=== PATIENT | female | born 1955 | race Caucasian/White ===

== ENCOUNTER 2017-10-14 06:32 | Day surgery (SDC) | payer OTHER, SELFPAY ==
[2017-10-14] VITALS (7 sets, daily range): BP systolic 107–149; BP diastolic 55–97; PULSE 63–82; RESP 16–18; TEMP 36.4–36.6; O2SAT 97–100; BMI 45.5
--- NOTE | 2017-10-14 08:53 | PCM.OPRPT ---
Report of Operation Date of Procedure: 10/14/17 Pre-Operative Diagnosis: Screening for colon cancer Post-Operative Diagnosis: Normal colon Surgery/Procedure Performed:: Colonoscopy Type of Anesthesia:: MAC Anesthesiologist: Adrián Mart Specimen's removed: none Estimated Blood Loss (mL): none Description of Procedure: Procedure: Colonoscopy After reviewing the risks benefits, the patient was deemed in satisfactory condition to undergo procedure. After obtaining informed consent, the scope was passed under direct visualization. Throughout the procedure, the patient's blood pressure pulse and position saturations were monitored continuously anesthesia. The colonoscope was introduced through the anus and advanced to the cecum, identified by the appendiceal orifice, IC valve and transillumination. The colonoscopy was performed without difficulty. The patient tolerated procedure well. Quality of bowel prep was good. Findings: The perianal and digital rectal exam were normal. The colon (entire examined portion) appeared normal. Retroflexed view of the distal rectum and anal verge was normal and showed no anal or rectal abnormalities Impression: 1. The entire colon is normal. 2. The distal rectal and anal verge were normal on retroflexed view. Recommendations: Repeat colonoscopy in 10 years for screening purposes - Complications none
== END 2017-10-14 09:43 | disposition home or self-care (01) ==
LOC: EN 06:32 → AC 06:38
PROVIDERS: Family Provider Family Medicine; PCP Family Medicine; Visit Provider Surgery
PROC: 0DJD8ZZ Inspection of Lower Intestinal Tract, Via Natural or Artificial Opening Endoscopic (ICD-10-PCS; CPT 45378; principal; 2017-10-14 07:55)
DX: Z12.11 Encounter for screening for malignant neoplasm of colon (principal); I10 Essential (primary) hypertension; K21.9 Gastro-esophageal reflux disease without esophagitis; R01.1 Cardiac murmur, unspecified; G47.30 Sleep apnea, unspecified; Z78.0 Asymptomatic menopausal state; Z90.49 Acquired absence of other specified parts of digestive tract; Z79.899 Other long term (current) drug therapy
CPT/HCPCS: G0121; J7120

== ENCOUNTER → 2018-02-08 14:09 | Outpatient (CLI) | payer OTHER, SELFPAY ==
[2018-02-08 15:23] LABS: Absolute Lymphocyte Count 2.16 X10^3/ul (0.83-4.51); Absolute Neutrophil Count 3.4 X10^3/uL (2.0-7.7); Basophil# 0.02 X10^3/uL; Basophil% 0.3 % (0-1); Eosinophil# 0.09 X10^3/uL; Eosinophils% 1.4 % (0-5); Hematocrit 39.8 % (37-47); Hemoglobin 12.5 g/dl (12.0-15.0); Lymphocyte # 2.16 X10^3/ul (4.0); Lymphocyte % 33.5 % (19-41); Mean Corp Hgb Conc 31.4 g/gl (32-36); Mean Corpuscular Hgb 26.5 pg (27.0-32.0); Mean Corpuscular Volume 84.5 fL (81-99); Mean Platelet Vol. 10.5 fl (6.2-12.0); Monocyte# 0.72 X10^3/uL; Monocyte% 11.2 % (0-10); Neutrophil # 3.44 X10^3/uL (2.7-7.7); Neutrophil % 53.4 % (47-70); Platelet Count 254 K/mm3 (150-450); RBC Distribution Width CV 14.1 % (11.6-14.6); RBC Distribution Width SD 43.5 fl (35.1-43.9); Red Blood Count 4.71 M/mm3 (4.2-5.4); White Blood Count 6.4 K/mm3 (4.4-11.0)
[2018-02-08 15:41] LABS: Hemoglobin A1c 6.2 % (4.2-6.3)
[2018-02-08 15:43] LABS: POSITIVE COUNT NO; POSITIVE DIFFERENTIAL NO; POSITIVE MORPHOLOGY NO
[2018-02-08 15:57] LABS: ALB/GLOB Ratio 0.9 RATIO (0.9-2.4); AST(SGOT) 19 U/L (15-37); Alanine Aminotransfer ALT/SGPT 32 U/L (13-56); Albumin, Serum 3.5 g/dL (3.2-5.0); Alkaline Phosphatase 58 U/L (45-117); Anion Gap 11 (5-15); BUN 12 mg/dL (7-18); BUN/Creat Ratio 17.1 RATIO (10-20); Calcium,Total 8.7 mg/dL (8.5-10.1); Chloride 106 mmol/L (98-107); Cholesterol 150 mg/dL (200); EST Glomerular Filtration Rate 90 mL/min (>60); Est Glom Filt Rate - Afr Amer 109 mL/min (>60); Globulin 3.7 g/dL (2.2-4.2); Glucose 90 mg/dL (74-106); High Density Lipoprotein 46 mg/dL; Potassium 3.9 mmol/L (3.5-5.1); Protein, Total 7.2 g/dL (6.4-8.2); Sodium Level 142 mmol/L (136-145); Triglycerides 92 mg/dL; Very Low Density Lipoprotein 18 mg/dL (5-40)
== END ==
PROVIDERS: Visit Provider Family Medicine
DX: Z00.01 Encounter for general adult medical examination with abnormal findings (principal); I10 Essential (primary) hypertension
CPT/HCPCS: 36415; 80053; 80061; 83036; 85025

== ENCOUNTER → 2018-12-15 | Outpatient (CLI) | payer OTHER, SELFPAY ==
[2017-10-14 07:13] VITALS: BMI 45.5
[2018-12-15 12:23] LABS: Absolute Lymphocyte Count 2.08 X10^3/uL (0.83-4.51); Absolute Neutrophil Count 2.9 X10^3/uL (2.0-7.7); Basophil# 0.05 X10^3/uL; Basophil% 0.9 % (0-1); Eosinophils% 1.8 % (0-5); Hematocrit 42.8 % (37-47); Hemoglobin 13.9 g/dL (12.0-15.0); Lymphocyte # 2.08 X10^3/ul (4.0); Mean Corp Hgb Conc 32.5 g/dL (32-36); Mean Corpuscular Volume 83.3 fL (81-99); Mean Platelet Vol. 10.9 fl (6.2-12.0); Monocyte# 0.47 X10^3/uL; Monocyte% 8.4 % (0-10); NRBC Flagged by Analyzer 0 % (0-5); Neutrophil # 2.91 X10^3/uL (2.7-7.7); Neutrophil % 51.7 % (47-70); Platelet Count 265 K/mm3 (150-450); RBC Distribution Width CV 13.9 % (11.6-14.6); RBC Distribution Width SD 42.5 fl (35.1-43.9); Red Blood Count 5.14 M/mm3 (4.2-5.4); White Blood Count 5.6 K/mm3 (4.4-11.0)
[2018-12-15 12:49] LABS: AST(SGOT) 19 U/L (15-37); Alanine Aminotransfer ALT/SGPT 40 U/L (13-56); Albumin, Serum 3.7 g/dL (3.2-5.0); Alkaline Phosphatase 66 U/L (45-117); Anion Gap 8 (5-15); BUN 16 mg/dL (7-18); BUN/Creat Ratio 19.8 RATIO (10-20); Calcium,Total 9.2 mg/dL (8.5-10.1); Chloride 106 mmol/L (98-107); Cholesterol 162 mg/dL (200); Creatinine, Serum 0.81 mg/dL (0.55-1.02); EST Glomerular Filtration Rate 77 mL/min (>60); Est Glom Filt Rate - Afr Amer 93 mL/min (>60); Globulin 3.8 g/dL (2.2-4.2); Glucose 114 mg/dL (74-106); High Density Lipoprotein 44 mg/dL; Potassium 3.9 mmol/L (3.5-5.1); Protein, Total 7.5 g/dL (6.4-8.2); Sodium Level 141 mmol/L (136-145); Triglycerides 106 mg/dL; Very Low Density Lipoprotein 21 mg/dL (5-40)
[2018-12-15 13:07] LABS: Hemoglobin A1c 6.4 % (4.2-6.3)
== END | disposition home or self-care (01) ==
LOC: BFHLAB 12-17 10:26
PROVIDERS: Family Provider Family Medicine; PCP Family Medicine; Visit Provider Family Medicine
DX: R73.03 Prediabetes (principal); I10 Essential (primary) hypertension; E78.5 Hyperlipidemia, unspecified; Z51.81 Encounter for therapeutic drug level monitoring
CPT/HCPCS: 36415; 80053; 80061; 83036; 85025

== ENCOUNTER 2021-01-23 17:00 | Outpatient (RCR) | payer OTHER, SELFPAY ==
--- NOTE | 2020-10-31 18:44 | HP.PTEVAL ---
Patient's Visit Information LIDA ALMARAZ is a 64 year old F referred to Physical Therapy by Dr. Kavon Su DO with a diagnosis of R knee OA, pain, Varus deformity. Date of Evaluation: 10/31/20 Physical Therapist: PILLO Hunt - Visit Plan Frequency: 2-3x /Week Duration: 4 Weeks Plan: 1-3 visits per week for 4 weeks for walker and gait training, R knee and hip strengthening, stair training, with possible trial of AT to learn I program to do on her own at her friends pools with HEP - Subjective Pt is having a R TKR this fall. Pt has been having problems with her R knee for awhile. She saw him in 2007 for the first time. X-rays are now bone on bone. She sits at desk all day at work. She reports that her knee pain is sharp and achy. Her knee does swell periodically. She does have momements that are pain free but since Chiristmas it hurts more and about 80% of the time. She can go down the stairs backwards with a railing. Ascending the steps she can go up with the R.... tries to make herself alternate. She had a fall the day before the election and hit her R knee (HS strain). She is back up on her elliptical for 5-6 min and was up to 10 minutes. She does a 10-15 min free weight routine 2-3 X/ week. She got a puppy in August and walks the puppy about 1/4 mile everyday. Sit to stand she is able to do it without using her arms - Pain R arm pain Pain Intensity (Out of 10): 1 - Objective Gait: walks with decrease stance time on the R LE. R knee AROM: -5 to 100. L knee AROM: -3 to 110. Palpation: Tender along the medial joint line. LE MMT: B hip abd 4-/5, 1/2 normal ROM bridge, B hip flex 3+/5, R knee ext 4-/5 and L 4/5, R knee flex 4-/5 and R knee ext 4/5. Pt is able to walk on heels and toes but increase pain when walking on heels. Stairs: up and down recip with 2 handrails and some heistancy descending with her L foot first. Sit to stand: able to get up without using her UE to help - Goals Goal 1:: I HEP Goal Time Frame: 4-6 Weeks - Rehabilitation Potential Rehabilitation Potential: Good - Anticipated Interventions Patient/Client Instruction: Educate patient on: Condition, Plan of Care For the Purpose of:: To decrease pain, To increase ROM, To improve nutrient delivery to tissue, To improve muscle performance and motor function, To improve ability to perform ADL's, To increase tolerance to activity/condition/position, To improve performance and independence with ADL's, To improve gait and locomotor functions, To improve health of tissue, To decrease soft tissue restriction, To increase flexibility/ROM, To improve balance, To improve safety with gait, To improve health and function Therapeutic Exercise to Include: Strength training, Balance training, Postural training, Flexibilty training, Gait and locomotor training, Neuromotor development, Biofeedback, Passive ROM, Active ROM For the Purpose of:: To decrease pain, To decrease swelling/inflammation, To increase ROM, To improve nutrient delivery to tissue, To improve muscle performance and motor function, To improve ability to perform ADL's, To increase tolerance to activity/condition/position, To improve performance and independence with ADL's, To decrease level of supervision to perform tasks, To improve ability of physical actions for home/community/work/leisure, To improve gait and locomotor functions, To improve health of tissue, To increase flexibility/ROM, To improve safety with gait Functional Training to Include: Gait training For the Purpose of:: To improve gait and locomotor functions, To improve safety with gait Thank you for the opportunity to evaluate your patient. For Medicare and Medicare HMO plans, please review the plan of care and approve it. It will need to be FAXED BACK to us at [phone] for Medicare purposes. For Medicare only, by signing this I certify the plan of care. Please let me know if there are questions or concerns regarding this plan of care. Physician Signature: Date:
--- NOTE | 2021-01-23 17:58 | HP.PTDCSUM ---
It has been my pleasure to treat LIDA ALMARAZ referred by Dr. Kavon Su DO, with the diagnosis of R knee OA, pain, Varus deformity for a total of 4 visit(s). Discharge Date: 01/23/21 Please see the following information for a summary of their discharge status. Subjective: Pt ready to learn gym exercises. Sitting is not good for her during long periods of time. Getting up off the chair is easier and stairs are easier. Pt reports that she is dragging her toe less on the floor. R arm pain Pain Intensity (Out of 10): 1 R knee pain Pain Intensity (Out of 10): 3 % Improvement: 30 Objective/Function: Pt has good understanding of Gym rountine and wants to do them on her own for now until surgery. Goal 1:: I HEP Goal Progress: Goal Met Goal 2:: Learn I H&W program Goal Progress: Goal Met Goal 3:: Be able to walk with a walker and up and down steps with a railing Goal Progress: Goal Met Plan: DC PT to I gym rountine Discharge Comments: DC PT to [facility] prior to surgery If there are questions or concerns regarding this patient's physical therapy, please feel free to call me at [phone]. Thank you for the referral of this patient. Sincerely, Karolina Card, MPT Balance/Gait/Functional tests - Balance/Special Test Scores Lower Extremity Functional Score: 50
== END 2021-01-23 19:00 | disposition home or self-care (01) ==
LOC: PT 17:00
PROVIDERS: PCP Family Medicine; Referring Provider Orthopaedic Surgery; Visit Provider Orthopaedic Surgery
DX: M17.11 Unilateral primary osteoarthritis, right knee (principal); M21.161 Varus deformity, not elsewhere classified, right knee
CPT/HCPCS: 97110; 97161

== ENCOUNTER 2021-05-31 07:42 | Outpatient (CLI) | payer OTHER, SELFPAY ==
--- NOTE | 2021-05-31 07:55 | US_ITS ---
STUDY: ABDOMINAL ULTRASOUND - RIGHT UPPER QUADRANT REASON FOR VISIT: Female, 65 years old fatty liver TECHNIQUE: Ultrasound evaluation of the right upper quadrant was performed with real-time and static batista-scale imaging. TECHNICAL QUALITY: Adequate. COMPARISON: None. FINDINGS: Liver: The liver is enlarged and measures 20 cm. There is increased echogenicity consistent with fatty infiltration. The bile ducts are within normal limits. There is hepatic color flow. The direction of portal flow is hepatopetal. There is no demonstrated mass lesion. Gallbladder: The patient is status post cholecystectomy. Common Bile Duct (C.B.D.): The common bile duct measures 4.6 mm. Pancreas: Normal size of the head, body and tail of the pancreas. There is normal echogenicity of the pancreas. There is no demonstrated pancreatic mass or cyst. Right Kidney: Normal size of the right kidney. The right kidney measures 11.6 cm x 5.1 cm x 4.8 cm. Normal renal cortex. The right cortex measures 1.7 cm. There is an 8.5 cm x 9 cm x 8.1 cm right renal cyst. Without tonsillar There is no right hydronephrosis. IMPRESSION: Hepatomegaly. Fatty infiltration of the liver. Right renal cyst. Electronically Signed: Ezequiel Gilbert MD at 15:16 EST , STUDY: ABDOMINAL ULTRASOUND - ELASTOGRAPHY REASON FOR VISIT: Female, 65 years old. Hepatomegaly and fatty inflation of the liver. TECHNIQUE: Liver stiffness measurements were obtained on a [employer] 85 ultrasound machine using a CA 1-7 probe following the SRU guidelines. 3 measurements were obtained using a 2-D-SWE method. The IQR/M was 18% suggesting a quality data set. TECHNICAL QUALITY: Adequate. COMPARISON: Comparison is made with prior study done earlier in the day. FINDINGS: Liver: Hepatomegaly and fatty infiltration of the liver. Median liver stiffness measured 4.1 kPa. US/Abdomen Limited IMPRESSION: Liver stiffness measures 4.1 kPa compatible with F0 Metavir score. Electronically Signed: Ezequiel Gilbert MD at 15:17 EST ,
== END 2021-05-31 23:59 | disposition home or self-care (01) ==
LOC: US 07:42
PROVIDERS: PCP Family Medicine; Visit Provider Internal Medicine Gastroenterology
DX: K76.0 Fatty (change of) liver, not elsewhere classified (principal)
CPT/HCPCS: 76705; 76981

== ENCOUNTER 2021-06-18 13:20 | Day surgery (SDC) | payer OTHER, SELFPAY ==
--- NOTE | 2021-06-18 | IMM_PTH ---
PATIENT: LIDA ALMARAZ LOC: EN U#:[id number] AGE/SX: 65/F ROOM: RE06/18/[address]: Dr. Riky Claudio DO : 1955 BED: DIS: 06/18/2021 SPEC #: [id number] RECD: 06/20/21 14:19 STATUS: [place] REQ #: [id number] DRISS: 06/18/21 00:[address]: Riky Claudio DEPT: IMMUNOHISTOCHEMISTRY RECD BY: Petra Martinez ENTERED: 06/20/21 14:21 SP TYPE: IMMUNO OTHR DR: Dr. Zunilda Davalos DO Tissues: B - Stomach, NOS Procedures: H Pylori (initial) PHYSICIAN & INSTITUTION [place] [address] SPECIMEN INFORMATION: Tissue Source: B ? Gastric body biopsy Clinical Info: GERD, diarrhea Specimen Number: [id number] CPT code: 90418 METHODOLOGY: Deparaffinized sections of prefer/formalin-fixed tissue or PAP/DQ stained slides are incubated with monoclonal/polyclonal antibodies/oligonucleotide probes. Localization is made via biotin free immunoperoxidase method. Appropriate controls are performed and reacted as expected. Results on target cell population are indicated in the following table: RESULTS: ANTIBODY / CLONE RESULT Block B H Pylori (polyclonal) negative These tests were developed and their performance characteristics determined by [facility]. They may not have been cleared or approved by the U.S. Food and Drug Administration. The FDA has determined that such clearance or approval is not necessary. The above immunohistochemical/dualISH markers are ordered and reviewed by the Pathologist. INTERPRETATION: B. Gastric body, biopsy: Negative for Helicobacter pylori organisms. AM:vince 06/21/2021
[2021-06-18 13:44] VITALS: BP 157/80; PULSE 81; RESP 16; TEMP 37.1; O2SAT 100; BMI 40.5
[2021-06-18] MEDS: Lactated Ringers 1,000 ML 15 ML IV (14:03)
--- NOTE | 2021-06-18 15:00 | EGD_PTH ---
PATIENT: LIDA ALMARAZ LOC: EN U#:[id number] AGE/SX: 65/F ROOM: RE06/18/[address]: Dr. Riky Claudio DO : 1955 BED: DIS: 06/18/2021 SPEC #: [id number] RECD: 06/18/21 16:15 STATUS: [place] #: [id number] DRISS: 06/18/21 15:[address]: Riky Claudio DEPT: SURGICAL PATHOLOGY RECD BY: Laury Lopez ENTERED: 06/19/21 09:04 SP TYPE: EGD BIOPSY OT DR: Dr. Zunilda Davalos DO Tissues: A - Small intestine mucous membrane B - Gastric mucous membrane C - Ileum, NOS D - COLON BIOPSY Procedures: Special Stain Group II Surgery Specimen Level IV Alcian Blue/PAS (control) HEADER OPERATION: Colonoscopy, EGD ([facility]), biopsy PRE-OP DIAGNOSIS: GERD, diarrhea TISSUE SUBMITTED: A ? Small bowel biopsy, B ? Gastric body biopsy, C ? Terminal ileum biopsy, D ? Random colonic biopsy MICROSCOPIC DIAGNOSIS A. Small bowel, biopsy: Mild nonspecific chronic inflammation. B. Gastric body, biopsy: Mild chronic gastritis. Focal intestinal metaplasia. No evidence of dysplasia. See comment. C. Terminal ileum, biopsy: Prominent benign appearing lymphoid aggregates. No evidence of ileitis. D. Colon, random biopsy: No pathologic change. AM:vince 06/20/2021 COMMENT B. The results of immunohistochemistry for Helicobacter pylori will be reported separately ([id number]). Alcian blue/PAS stain with matched control supports the above diagnosis. MICROSCOPIC DESCRIPTION Slides are reviewed. GROSS DESCRIPTION A - Received in fixative is one container labeled with the patient's name and designated small bowel biopsy. The specimen consists of multiple irregular fragments of light cook soft tissue that in aggregate measure 1.3 x 0.3 x 0.1 cm. The specimen is totally submitted in one cassette. B - Received in fixative is one container labeled with the patient's name and designated gastric body biopsy. The specimen consists of multiple irregular fragments of light cook soft tissue that in aggregate measure 0.3 x 0.2 x 0.1 cm. The specimen is totally submitted in one cassette. C - Received in fixative is one container labeled with the patient's name and designated terminal ileum biopsy. The specimen consists of multiple irregular fragments of light cook soft tissue that in aggregate measure 0.7 x 0.5 x 0.1 cm. The specimen is totally submitted in one cassette. D - Received in fixative is one container labeled with the patient's name and designated random colon biopsy. The specimen consists of multiple irregular fragments of light cook soft tissue that in aggregate measure 2 x 0.6 x 0.1 cm. The specimen is totally submitted in one cassette. / SJ:rg 06/19/2021 TC:3 CPT: 29328 x4, 12520
--- NOTE | 2021-06-18 15:22 | HP.PCM_ITS ---
History and Physical Date of Admission: 06/18/21 LIDA ALMARAZ, is a 65 F who presents to the office today for evaluation of abdominal pain and fatty liver disease. She says that she has been getting intermittent abdominal pain over the last several months but it was not consistent and was not severe. She reports an intense periumbilical pain radiating to both flanks that can last anywhere from minutes to days. She cannot identify any particular food that causes her symptoms. Nothing makes it better. She cannot identify anything that makes it worse. She has not started any new medicines. She has been watching her diet but that has not changed the frequency and severity of the abdominal pain. She does not have a gallbladder. She has had a history of endometriosis that required lysis of adhesions in the past. She also has a history of a . She has normal bowel movements without the use of laxatives. She goes to bathroom probably once a day and occasionally still skips a day. She also reports upper abdominal pain/cramping at onset with yellow and mucous- like diarrhea following. It has taken about ten days for diarrhea to resolve with spontaneous resolution. Sometimes she gets feelings of sweating and lightheadedness. Known onset November of 2020, but feels that maybe she has had similar symptoms with less intensity and duration several times a year in the past. Aggravating factors include fatty foods. She has not found any alleviating factors. Attempted diet changes during symptom presence without effect. Chiropractor suggested red beet supplement for the liver and probiotic which she feels is helpful. US abd 12.16.21 performed at [facility] found Echogenic liver. PCP performed biochemical workup. No medications started at this time. She reports weight loss of 41 lbs in the last year. She has been altering her diet to exclude carbohydrates during the week. Reports current weight around 250lbs. Additional medical history of DMII (PCP has been monitoring A1C), HTN, sleep apnea, hypercalcemia, kidney stones, osteoarthritis, GERD. ROS Gastro GI: Positive for abdominal pain and bloating Exam Const General: cooperative and comfortable Nutritional Appearance: average body habitus and well nourished [facility] Head: normal to inspection Ears: hearing grossly normal bilaterally Nose: external nose normal Face and sinus: normal facial exam Mouth: oral mucosae normal Throat: posterior oropharynx normal Eyes General: appearance normal, both eyes and all related structures Neck Neck: normal visual inspection Chest Chest palpation & inspection: normal inspection of the chest and normal palpation of entire chest wall Resp Effort & Inspection: normal respiratory effort Auscultation: Bilateral: Clear to Auscultation Cardio Palpation: normal PMI Rate: regular rate Rhythm: regular rhythm GI Inspection: normal to inspection Auscultation: normal bowel sounds Percussion: normal to percussion Palpation: no hepatosplenomegaly Skin General: no rashes or lesions noted Neuro General: patient alert Extrem General: normal to inspection Psych Affect: normal affect Quality Reporting Tobacco Screening ([facility] 138) Smoking Status: Never smoker Assessment and Plan Assessment and Plan (1) Fatty liver: Status: Acute Orders: Orders: Comprehensive Metabolic Profil Today CRP Today Ferritin Today LDH Today Hemoglobin A1c Today CBC W/Diff, Automated Today Erythrocyte Sed Rate Today Angiotensin Convert Enzyme Today AFP, Tumor Marker Today Ceruloplasmin Today Copper, Serum or Plasma Today Haptoglobin Today HIV - [facility] Today Prothrombin Time w/INR Today Anti-Mitochondrial AB Today Hepatitis Panel Acute Today ANCA Today Anti-Smooth Muscle ABS Today Miscellaneous Lab Procedure Today Abdomen Complete Today Elastography Parenchyma/Organ Today Plan - Dr. Riky Claudio, DO: We will perform a extensive biochemical work-up to look for other signs of chronic liver disease such as autoimmune hepatitis, primary biliary cirrhosis, celiac disease, Jason's disease, hemochromatosis, amyloidosis. All of these other diagnoses can cause hepatomegaly and contribute to worsening chronic liver disease in the setting of fatty liver disease. We will also get a FibroScan and a dedicated ultrasound to know the size of the liver. We went over the natural history of fatty liver disease and therapeutics that are currently used in order to treat it along with weight loss, glucose control and improve metabolism. (2) GERD (gastroesophageal reflux disease): Status: Acute Plan - Dr. Riky Claudio, DO: She has a history of gastroesophageal reflux disease. We will perform an upper endoscopy to evaluate upper GI tract and screen for Zimmerman's esophagus, peptic ulcer disease and inflammatory disease of the upper GI tract. (3) Diarrhea: Status: Acute Plan - Dr. Riky Claudio, DO: The differential diagnosis for her diarrhea does include dumping secondary to diabetes mellitus, small bacterial overgrowth, IBS with diarrhea, eosinophilic gastroenteritis intermittent or chronic ischemic colitis and less likely inflammatory bowel disease. She will undergo colonoscopy with biopsies and also check serum immunoglobulins. I have re-examined the patient. There are no clinical changes since date of exam.
--- NOTE | 2021-06-18 15:37 | OP.EGD_ITS ---
Patient Name: Michelle Wade Procedure Date: 06/18/2021 3:15 PM Date of : 1955 Age: 65 Procedure: Upper GI endoscopy Indications: Epigastric abdominal pain, Failure to respond to medical treatment Providers: Riky Claudio DO Medicines: See the Anesthesia note for documentation of the administered medications Patient Profile: This is a 65 year old female. Refer to note in patient chart for documentation of history and physical. Patient has symptoms. Complications: No immediate complications. Procedure: Pre-Anesthesia Assessment: - Prior to the procedure, a History and Physical was performed, and patient medications and allergies were reviewed. The patient is competent. The risks and benefits of the procedure and the sedation options and risks were discussed with the patient. All questions were answered and informed consent was obtained. Patient identification and proposed procedure were verified by the physician in the pre-procedure area. Mental Status Examination: alert and oriented. Airway Examination: normal oropharyngeal airway and neck mobility. Respiratory Examination: clear to auscultation. CV Examination: normal. Prophylactic Antibiotics: The patient does not require prophylactic antibiotics. Prior Anticoagulants: The patient has taken no previous anticoagulant or antiplatelet agents. ASA Grade Assessment: II - A patient with mild systemic disease. After reviewing the risks and benefits, the patient was deemed in satisfactory condition to undergo the procedure. The anesthesia plan was to use moderate sedation / analgesia (conscious sedation). Immediately prior to administration of medications, the patient was re-assessed for adequacy to receive sedatives. The heart rate, respiratory rate, oxygen saturations, blood pressure, adequacy of pulmonary ventilation, and response to care were monitored throughout the procedure. The physical status of the patient was re-assessed after the procedure. After obtaining informed consent, the endoscope was passed under direct vision. Throughout the procedure, the patient's blood pressure, pulse, and oxygen saturations were monitored continuously. The Colonoscope was introduced through the mouth, and advanced to the second part of duodenum. The upper GI endoscopy was accomplished without difficulty. The patient tolerated the procedure well. Moderate Sedation: Moderate (conscious) sedation was administered by the endoscopy nurse and supervised by the endoscopist. The following parameters were monitored: oxygen saturation, heart rate, blood pressure, and response to care. Total physician intraservice time was 15 minutes. Scope In: 3:27:22 PM Scope Out: 3:33:12 PM Total Procedure Duration Time 0 hours 5 minutes 50 seconds Findings: The examined esophagus was normal. Patchy mildly erythematous mucosa without bleeding was found in the gastric body. Biopsies were taken with a cold forceps for histology. Verification of patient identification for the specimen was done. Estimated blood loss was minimal. There was some benign gastric polyps seen throughout the gastric body and fundic region of the stomach. The second portion of the duodenum was normal. Biopsies were taken with a cold forceps for histology. Biopsies were taken with a cold forceps for histology. Verification of patient identification for the specimen was done. Estimated blood loss was minimal. Impression: - Normal esophagus. - Erythematous mucosa in the gastric body. Biopsied. - Normal second portion of the duodenum. Biopsied. Recommendation: - Discharge patient to home. - Resume previous diet. - Continue present medications. - Await pathology results. Procedure Code(s): --- Professional --- 77385, Esophagogastroduodenoscopy, flexible, transoral; with biopsy, single or multiple 04923, 59, Moderate sedation services provided by the same physician or other qualified health attending ambulatory care performing the diagnostic or therapeutic service that the sedation supports, requiring the presence of an independent trained observer to assist in the monitoring of the patient's level of consciousness and physiological status; initial 15 minutes of intraservice time, patient age 5 years or older CPT copyright 2017 [employer]. All rights reserved. The codes documented in this report are preliminary and upon bat lathe operator review may be revised to meet current compliance requirements. Riky Claudio DO 06/18/2021 3:36:53 PM This report has been signed electronically. Number of Addenda: 1 Note Initiated On: 06/18/2021 3:15 PM Addendum Number: 1 Addendum Date: 01/15/2022 6:42:16 AM MAC was used as sedation for this procedure. Riky Claudio DO 01/15/2022 6:42:20 AM This report has been signed electronically.
--- NOTE | 2021-06-18 15:38 | OP.CCLET_ITS ---
01/15/2022 Zunilda Davalos [address] [place] [address] Re : Upper GI endoscopy procedure for Michelle Wade Dear Dr. Davalos This procedure was performed on Friday, June 18, 2021. My impressions and recommendations are as follows: Impressions : - Normal esophagus. - Erythematous mucosa in the gastric body. Biopsied. - Normal second portion of the duodenum. Biopsied. Recommendations : - Discharge patient to home. - Resume previous diet. - Continue present medications. - Await pathology results. My findings are described in the full procedure note, which is enclosed. If I can be of further assistance, please feel free to contact me at . Sincerely, Riky Claudio, 06/18/2021 3:36:53 PM This report has been signed electronically.
[2021-06-18 16:05] VITALS: BP 126/80; BP 157/80; PULSE 77; RESP 16; TEMP 36.2; O2SAT 100
--- NOTE | 2021-06-18 16:07 | OP.COLON_ITS ---
Patient Name: Michelle Wade Procedure Date: 06/18/2021 3:36 PM Date of : 1955 Age: 65 Procedure: Colonoscopy Indications: Clinically significant diarrhea of unexplained origin Providers: Riky Claudio DO Medicines: See the Anesthesia note for documentation of the administered medications Patient Profile: This is a 65 year old female. Refer to note in patient chart for documentation of history and physical. Patient has symptoms. Last Colonoscopy: date unknown. Complications: No immediate complications. Procedure: Pre-Anesthesia Assessment: - Prior to the procedure, a History and Physical was performed, and patient medications and allergies were reviewed. The patient is competent. The risks and benefits of the procedure and the sedation options and risks were discussed with the patient. All questions were answered and informed consent was obtained. Patient identification and proposed procedure were verified by the physician in the pre-procedure area. Mental Status Examination: alert and oriented. Airway Examination: normal oropharyngeal airway and neck mobility. Respiratory Examination: clear to auscultation. CV Examination: normal. Prophylactic Antibiotics: The patient does not require prophylactic antibiotics. Prior Anticoagulants: The patient has taken no previous anticoagulant or antiplatelet agents. ASA Grade Assessment: II - A patient with mild systemic disease. After reviewing the risks and benefits, the patient was deemed in satisfactory condition to undergo the procedure. The anesthesia plan was to use moderate sedation / analgesia (conscious sedation). Immediately prior to administration of medications, the patient was re-assessed for adequacy to receive sedatives. The heart rate, respiratory rate, oxygen saturations, blood pressure, adequacy of pulmonary ventilation, and response to care were monitored throughout the procedure. The physical status of the patient was re-assessed after the procedure. After I obtained informed consent, the scope was passed under direct vision. Throughout the procedure, the patient's blood pressure, pulse, and oxygen saturations were monitored continuously. The Colonoscope was introduced through the anus and advanced to the terminal ileum. The colonoscopy was performed without difficulty. The patient tolerated the procedure well. The quality of the bowel preparation was good. Moderate Sedation: Moderate (conscious) sedation was administered by the endoscopy nurse and supervised by the endoscopist. The following parameters were monitored: oxygen saturation, heart rate, blood pressure, and response to care. Total physician intraservice time was 15 minutes. Scope In: 3:39:32 PM Scope Withdrawal Time 0 hours 12 minutes 18 seconds Scope Out: 4:01:40 PM Total Procedure Duration Time 0 hours 22 minutes 8 seconds Findings: The perianal and digital rectal examinations were normal. The colon (entire examined portion) appeared normal. Biopsies for histology were taken with a cold forceps from the ascending colon, right colon, left colon, transverse colon, right transverse colon, left transverse colon, descending colon, sigmoid colon, rectum and rectosigmoid colon for evaluation of microscopic colitis. Verification of patient identification for the specimen was done. Estimated blood loss was minimal. The terminal ileum appeared normal. Biopsies were taken with a cold forceps for histology. Verification of patient identification for the specimen was done. Estimated blood loss was minimal. Impression: - The entire examined colon is normal. Biopsied. - The examined portion of the ileum was normal. Biopsied. Recommendation: - Discharge patient to home. - Resume previous diet. - Continue present medications. - Await pathology results. - Repeat colonoscopy in 5 years for surveillance based on pathology results. Procedure Code(s): --- Professional --- 68111, Colonoscopy, flexible; with biopsy, single or multiple 19757, 59, Moderate sedation services provided by the same physician or other qualified health child care counselor performing the diagnostic or therapeutic service that the sedation supports, requiring the presence of an independent trained observer to assist in the monitoring of the patient's level of consciousness and physiological status; initial 15 minutes of intraservice time, patient age 5 years or older CPT copyright 2017 [employer]. All rights reserved. The codes documented in this report are preliminary and upon personal injury paralegal review may be revised to meet current compliance requirements. Riky Claudio DO 06/18/2021 4:07:00 PM This report has been signed electronically. Number of Addenda: 1 Note Initiated On: 06/18/2021 3:36 PM Addendum Number: 1 Addendum Date: 01/15/2022 6:42:28 AM MAC was used as sedation for this procedure. Riky Claudio DO 01/15/2022 6:42:32 AM This report has been signed electronically.
--- NOTE | 2021-06-18 16:08 | OP.CCLET_ITS ---
01/15/2022 Zunilda Davalos [address] [place] [address] Re : Colonoscopy procedure for Michelle Wade Dear Dr. Davalos This procedure was performed on Friday, June 18, 2021. My impressions and recommendations are as follows: Impressions : - The entire examined colon is normal. Biopsied. - The examined portion of the ileum was normal. Biopsied. Recommendations : - Discharge patient to home. - Resume previous diet. - Continue present medications. - Await pathology results. - Repeat colonoscopy in 5 years for surveillance based on pathology results. My findings are described in the full procedure note, which is enclosed. If I can be of further assistance, please feel free to contact me at . Sincerely, Riky Claudio, 06/18/2021 4:07:00 PM This report has been signed electronically.
[2021-06-18 16:10] VITALS: BP 124/74; BP 157/80; PULSE 70; RESP 16; O2SAT 100
[2021-06-18 16:15] VITALS: BP 124/70; BP 157/80; PULSE 72; RESP 16; O2SAT 100
[2021-06-18 16:20] VITALS: BP 127/70; BP 157/80; PULSE 70; RESP 16; O2SAT 100
[2021-06-18 16:36] VITALS: BP 157/80
== END 2021-06-18 23:59 | disposition home or self-care (01) ==
LOC: EN 13:21 → AC 13:23
PROVIDERS: PCP Family Medicine; Referring Provider Family Medicine; Visit Provider Internal Medicine Gastroenterology
PROC: 0DJD8ZZ Inspection of Lower Intestinal Tract, Via Natural or Artificial Opening Endoscopic (ICD-10-PCS; CPT 45378; principal; 2021-06-18 14:55)
DX: K29.50 Unspecified chronic gastritis without bleeding (principal); E21.5 Disorder of parathyroid gland, unspecified; K76.0 Fatty (change of) liver, not elsewhere classified; M19.90 Unspecified osteoarthritis, unspecified site; E78.2 Mixed hyperlipidemia; I10 Essential (primary) hypertension; Z79.899 Other long term (current) drug therapy; Z90.49 Acquired absence of other specified parts of digestive tract; K31.7 Polyp of stomach and duodenum
CPT/HCPCS: 45380; 43239; 87426; 88305; 88313; 88342; J7120

== ENCOUNTER → 2022-06-18 | Outpatient (CLI) | payer OTHER, SELFPAY ==
--- NOTE | 2022-06-18 09:45 | RAD_ITS ---
STUDY: X-RAY - ESOPHAGUS (BARIUM SWALLOW) WITH FLUOROSCOPY REASON FOR EXAM: Female, 66 years old. Dysphagia TECHNIQUE: 9 view(s) of the esophagus were obtained following swallowing of barium. FLUOROSCOPY TIME (if supplied): (61 seconds) minutes/seconds. 40.88 mGy COMPARISON: None. FINDINGS: There is no demonstrated esophageal foreign body. There is no demonstrated stricture or mucosal abnormality. Normal gastroesophageal junction, without a demonstrated hiatal hernia. The patient ingested a 12 mm tablet of barium without any difficulty. Normal visualized aortic arch and descending thoracic aorta. Normal visualized pulmonary parenchyma. Normal visualized osseous structures of the thorax. RAD/Esophagus Dual Contrast IMPRESSION: Normal plain film x-ray examination (barium swallow) of the esophagus. Electronically Signed: Ezequiel Gilbert MD at 15:08 [facility] ,
== END | disposition home or self-care (01) ==
LOC: RAD 09:39
PROVIDERS: PCP Family Medicine; Visit Provider Nurse Practitioner Adult Health
DX: R13.10 Dysphagia, unspecified (principal); K21.9 Gastro-esophageal reflux disease without esophagitis
CPT/HCPCS: 74221

== ENCOUNTER → 2023-07-09 | Outpatient (CLI) | payer MEDICARE, OTHER, SELFPAY ==
[2023-07-09 13:22] LABS: Absolute Lymphocyte Count 2.47 X10^3/uL (0.83-4.51); Absolute Neutrophil Count 4.6 X10^3/uL (2.0-7.7); Basophil# 0.03 X10^3/uL; Basophil% 0.4 % (0-1); Eosinophil# 0.11 X10^3/uL; Eosinophils% 1.4 % (0-5); Hematocrit 43.4 % (37-47); Lymphocyte # 2.47 X10^3/ul (0.83-4.51); Lymphocyte % 30.9 % (19-41); Mean Corp Hgb Conc 32.3 g/dL (32-36); Mean Corpuscular Hgb 26.9 pg (27.0-32.0); Mean Corpuscular Volume 83.3 fL (81-99); Mean Platelet Vol. 10.7 fl (6.2-12.0); Monocyte# 0.79 X10^3/uL; Monocyte% 9.9 % (0-10); NRBC Flagged by Analyzer 0 % (0-5); Neutrophil # 4.58 X10^3/uL (2.7-7.7); Neutrophil % 57.1 % (47-70); Platelet Count 307 K/mm3 (150-450); RBC Distribution Width CV 14.6 % (11.6-14.6); RBC Distribution Width SD 44.1 fl (35.1-43.9); Red Blood Count 5.21 M/mm3 (4.2-5.4)
[2023-07-09 14:04] LABS: ALB/GLOB Ratio 0.9 RATIO (0.9-2.4); AST(SGOT) 34 U/L (15-37); Alanine Aminotransfer ALT/SGPT 36 U/L (13-56); Albumin, Serum 3.6 g/dL (3.2-5.0); Alkaline Phosphatase 58 U/L (45-117); Anion Gap 6 (5-15); BUN 19 mg/dL (7-18); BUN/Creat Ratio 24.1 RATIO (10-20); Calcium,Total 9.3 mg/dL (8.5-10.1); Chloride 107 mmol/L (98-107); Cholesterol 176 mg/dL (200); Creatinine, Serum 0.79 mg/dL (0.55-1.02); EST Glomerular Filtration Rate 78 mL/min (>60); Est Glom Filt Rate - Afr Amer 94 mL/min (>60); Globulin 4.1 g/dL (2.2-4.2); Glucose 122 mg/dL (74-106); High Density Lipoprotein 47 mg/dL; Potassium 4.2 mmol/L (3.5-5.1); Protein, Total 7.7 g/dL (6.4-8.2); Sodium Level 139 mmol/L (136-145); Triglycerides 145 mg/dL; Very Low Density Lipoprotein 29 mg/dL (5-40)
[2023-07-09 14:14] LABS: Microalbumin,Random Urine 5.3 mg/L (NO RANGE EST.); Microalbumin:Creatinine Ratio 4.9 mg/g CRE (<30 mg/g CRE)
[2023-07-09 14:38] LABS: Hemoglobin A1c 6.6 % (3.8-5.6)
== END | disposition home or self-care (01) ==
PROVIDERS: PCP Family Medicine; Referring Provider Family Medicine; Visit Provider Family Medicine
DX: E11.9 Type 2 diabetes mellitus without complications (principal); I10 Essential (primary) hypertension; E78.5 Hyperlipidemia, unspecified; Z51.81 Encounter for therapeutic drug level monitoring
CPT/HCPCS: 36415; 80053; 80061; 82043; 82570; 83036; 85025

== ENCOUNTER → 2023-11-06 | Outpatient (CLI) | payer MEDICARE, OTHER, SELFPAY | END | disposition home or self-care (01) | LOC: SL 20:03 | PROVIDERS: PCP Family Medicine; Referring Provider Family Medicine; Visit Provider Family Medicine | DX: G47.33 Obstructive sleep apnea (adult) (pediatric) (principal) | CPT/HCPCS: 95811 ==

== ENCOUNTER → 2024-02-02 | Outpatient (CLI) | payer MEDICARE, OTHER, SELFPAY ==
--- NOTE | 2024-02-02 16:34 | RAD_ITS ---
EXAM: XR CHEST, 2 VIEWS CLINICAL INDICATION: ASSESS LEFT RIBS FRACTURE OR DISPLACEMENT TECHNIQUE: Frontal and lateral views of the chest. COMPARISON: No relevant prior studies available. FINDINGS: LUNGS AND PLEURAL SPACES: No significant abnormality. No consolidation or edema. No pneumothorax. No effusion. HEART: No significant abnormality. Cardiac silhouette not enlarged. MEDIASTINUM: Central airways and mediastinal contour are unremarkable. BONES/JOINTS: No significant abnormality. No acute fracture. SOFT TISSUES: No significant abnormality. RAD/Chest PA and Lateral IMPRESSION: No definite acute pathology. No rib fracture is identified. If there is high clinical concern and necessity, consider CT. Electronically Signed: Serafin Bhat DO at 0:01 EDT ,
== END | disposition home or self-care (01) ==
PROVIDERS: PCP Family Medicine; Referring Provider Nurse Practitioner Family; Visit Provider Nurse Practitioner Family
DX: R07.81 Pleurodynia (principal)
CPT/HCPCS: 71046

== ENCOUNTER → 2024-02-05 | Outpatient (CLI) | payer MEDICARE, OTHER, SELFPAY | END | disposition home or self-care (01) | LOC: LABSPEC 15:53 | PROVIDERS: PCP Family Medicine; Referring Provider Family Medicine; Visit Provider Family Medicine | DX: R30.0 Dysuria (principal) | CPT/HCPCS: 87077; 87086; 87088; 87186 ==

== ENCOUNTER → 2024-08-01 | Outpatient (CLI) | payer MEDICARE, OTHER, SELFPAY ==
[2024-08-01 13:00] LABS: Absolute Lymphocyte Count 2.53 X10^3/uL (0.83-4.51); Absolute Neutrophil Count 3.2 X10^3/uL (2.0-7.7); Basophil# 0.04 X10^3/uL; Basophil% 0.6 % (0-1); Eosinophil# 0.11 X10^3/uL; Eosinophils% 1.7 % (0-5); Hematocrit 41.4 % (37-47); Hemoglobin 13.6 g/dL (12.0-15.0); Lymphocyte # 2.53 X10^3/ul (0.83-4.51); Lymphocyte % 39.4 % (19-41); Mean Corp Hgb Conc 32.9 g/dL (32-36); Mean Corpuscular Hgb 27.1 pg (27.0-32.0); Mean Corpuscular Volume 82.6 fL (81-99); Mean Platelet Vol. 10.3 fl (6.2-12.0); Monocyte# 0.58 X10^3/uL; NRBC Flagged by Analyzer 0 % (0-5); Neutrophil # 3.15 X10^3/uL (2.7-7.7); Neutrophil % 49.1 % (47-70); Platelet Count 293 K/mm3 (150-450); RBC Distribution Width CV 14.3 % (11.6-14.6); RBC Distribution Width SD 42.6 fl (35.1-43.9); Red Blood Count 5.01 M/mm3 (4.2-5.4); White Blood Count 6.4 K/mm3 (4.4-11.0)
[2024-08-01 13:19] LABS: Hemoglobin A1c 7.5 % (<=5.6)
[2024-08-01 13:24] LABS: Microalbumin,Random Urine < 12.0 mg/L (NO RANGE EST.); Microalbumin:Creatinine Ratio UNABLE TO CALCULATE mg/g CRE
[2024-08-01 13:45] LABS: Cholesterol 172 mg/dL (<=200); High Density Lipoprotein 50 mg/dL; Low Density Lipoprotein Calc. 96 mg/dL; Triglycerides 130 mg/dL; Very Low Density Lipoprotein 26 mg/dL (5-40); cholesterol:hdl ratio screen 3.42
[2024-08-01 13:46] LABS: ALB/GLOB Ratio 1.4 RATIO (0.9-2.4); AST(SGOT) 31 U/L (<=31); Alanine Aminotransfer ALT/SGPT 40 U/L (<=34); Albumin, Serum 4.2 g/dL (3.4-4.8); Alkaline Phosphatase 61 U/L (35-104); Anion Gap 11 (5-15); BUN 16 mg/dL (4-19); BUN/Creat Ratio 19.3 RATIO (10-20); Calcium,Total 9.4 mg/dL (7.6-11.0); Carbon Dioxide 23.4 mmol/L (21.0-32.0); Chloride 105 mmol/L (98-108); Creatinine, Serum 0.84 mg/dL (0.70-1.20); EST Glomerular Filtration Rate 77 (>60); Globulin 3.1 g/dL (2.2-4.2); Glucose 138 mg/dL (70-99); Potassium 4.2 mmol/L (3.3-5.1); Protein, Total 7.3 g/dL (5.9-8.4); Sodium Level 139 mmol/L (133-145); Total Bilirubin 0.57 mg/dL (0.00-1.30)
== END | disposition home or self-care (01) ==
LOC: LAB 12:15
PROVIDERS: PCP Family Medicine; Referring Provider Family Medicine; Visit Provider Family Medicine
DX: E11.9 Type 2 diabetes mellitus without complications (principal); I10 Essential (primary) hypertension; E78.5 Hyperlipidemia, unspecified; Z51.81 Encounter for therapeutic drug level monitoring
CPT/HCPCS: 36415; 80053; 80061; 82043; 82570; 83036; 85025

== ENCOUNTER → 2024-11-09 | Outpatient (CLI) | payer MEDICARE, OTHER, SELFPAY | END | disposition home or self-care (01) | LOC: LABSPEC 15:55 | PROVIDERS: PCP Family Medicine; Referring Provider Family Medicine; Visit Provider Family Medicine | DX: R30.0 Dysuria (principal) | CPT/HCPCS: 87077; 87086; 87088; 87186 ==